=== PATIENT | female | born 1965 | race Caucasian/White ===

== ENCOUNTER 2020-09-14 11:36 | Inpatient (IN) | payer OTHER ==
[~2020-09-14] VITALS: Ht 165.1 cm; Wt 87.2 kg
[2020-09-14 12:55] LABS: BASOPHIL 0.9 % (0-2); EOSINOPHIL 0.3 % (0-5); HCT 21.4 % (37.0-47.0); LYMPHOCYTE 25.3 % (15-48); MCH 25.5 pg (25.0-31.0); MCHC 30.4 g/dL (32.0-36.0); MCV 83.9 fL (78.0-100.0); MPV 8.5 fL (6.0-9.5); NEUTROPHIL 67.4 % (41-80); NRBC 0.2; PLT 343 K/uL (150-400); RBC 2.55 M/uL (4.20-5.40); RDW 19.9 % (11.5-14.0); WBC 12.4 K/uL (4.0-10.5)
[2020-09-14 12:58] LABS: HGB 6.5 g/dl (12.5-16.0)
[2020-09-14 13:09] LABS: INR 1.28 (0.9-1.2); PROTHROMBIN TIME 15.2 SECONDS (11.4-13.6); PTT 33.3 SECONDS (22.2-34.7)
[2020-09-14 13:11] LABS: D-DIMER 0.42 ug/mLFEU (0.00-0.41)
[2020-09-14 13:25] LABS: ALBUMIN 2.6 g/dL (3.4-5.0); BILIRUBIN - TOTAL 1.6 mg/dL (0.2-1.0); CREATININE 0.61 mg/dL (0.51-0.95); GLOBULIN (CALCULATION) 4.3 g/dL; MAGNESIUM 1.1 mg/dL (1.8-2.4); POTASSIUM 2.5 mmol/L (3.5-5.1); TOTAL PROTEIN 6.9 g/dL (6.4-8.2)
[2020-09-14 17:16] LABS: BILIRUBIN 1+ mg/dL (NEGATIVE); BLOOD NEGATIVE Ery/uL (NEGATIVE); CLARITY HAZY (CLEAR); COLOR YELLOW (YELLOW); GLUCOSE (U) NORMAL (NORMAL); LEUKOCYTES 2+ Leu/uL (NEGATIVE); NITRITE POSITIVE (NEGATIVE); PROTEIN TRACE (LOW) mg/dL (NEGATIVE); UROBILINOGEN >=8.0 mg/dL (0.2-1.0); pH 6.5 (5.0-9.0)
[2020-09-14 17:43] LABS: BACTERIA 4+
[2020-09-15 06:31] LABS: EOSINOPHIL 0.8 % (0-5); HCT 30.9 % (37.0-47.0); LYMPHOCYTE 23.4 % (15-48); MCH 26.7 pg (25.0-31.0); MCHC 32.4 g/dL (32.0-36.0); MCV 82.4 fL (78.0-100.0); MONOCYTE 4.7 % (0-12); MPV 8.8 fL (6.0-9.5); NEUTROPHIL 69.2 % (41-80); NRBC 0.2; PLT 292 K/uL (150-400); RBC 3.75 M/uL (4.20-5.40); RDW 17.7 % (11.5-14.0); WBC 11.5 K/uL (4.0-10.5)
[2020-09-15 07:05] LABS: CREATININE 0.6 mg/dL (0.51-0.95); POTASSIUM 3.6 mmol/L (3.5-5.1)
[2020-09-15] MEDS ORDERED: BUSPAR5 MG PO (09:17)
[2020-09-15] MEDS ORDERED: PROZAC20 MG PO (09:18)
[2020-09-15] MEDS ORDERED: LOSARTAN POTASS50 MG PO (09:18)
[2020-09-15] MEDS ORDERED: SYMBICORT 80-10.2 GM INH (09:19)
[2020-09-15] MEDS ORDERED: ANORO ELLIPTA1 EACH INH (09:21)
[2020-09-16 05:50] LABS: HGB 9.3 g/dl (12.5-16.0); MCH 26.6 pg (25.0-31.0); MPV 8.8 fL (6.0-9.5); RBC 3.49 M/uL (4.20-5.40)
[2020-09-16 06:06] LABS: CREATININE 0.6 mg/dL (0.51-0.95); POTASSIUM 3.4 mmol/L (3.5-5.1)
--- NOTE | 2020-09-16 12:18 | NUR ---
09/16/20 Ms. Multani is . She lives with her sister and works at [employer]. She does not have any DME. A referral was made to [facility] in anticipation of discharge for 09/16 or 09/17. A report was given to Mariela [employer]CH[employer]ICIAN.
[2020-09-16] MEDS ORDERED: NEURONTIN300 MG PO (16:24)
[2020-09-16] MEDS ORDERED: ZOFRAN4 M1 PO (16:24)
[2020-09-16] MEDS ORDERED: PROTONIX 40MG T40 MG PO (16:24)
[2020-09-16] MEDS ORDERED: CARAFATE1 GM PO (16:35)
[2020-09-25] MEDS ORDERED: NEURONTIN300 MG PO (15:39)
== END 2020-09-16 17:00 | disposition home or self-care (01) | DRG 378 ==
LOC: FER 11:36 → FICU 14:23
PROVIDERS: Emergency Medicine; Hospitalist; Student in an Organized Health Care Education/Training Program; ADMIT Allergy & Immunology Allergy
PROC: 30233N1 Transfusion of Nonautologous Red Blood Cells into Peripheral Vein, Percutaneous Approach (ICD-10-PCS; 2020-09-14)
PROC: 0DB68ZX Excision of Stomach, Via Natural or Artificial Opening Endoscopic, Diagnostic (ICD-10-PCS; 2020-09-15)
PROC: 0DBP8ZZ Excision of Rectum, Via Natural or Artificial Opening Endoscopic (ICD-10-PCS; 2020-09-15)
PROC: 0DBE8ZZ Excision of Large Intestine, Via Natural or Artificial Opening Endoscopic (ICD-10-PCS; 2020-09-15)
PROC: 30233N1 Transfusion of Nonautologous Red Blood Cells into Peripheral Vein, Percutaneous Approach (ICD-10-PCS; 2020-09-15)
PROC: 0W3P8ZZ Control Bleeding in Gastrointestinal Tract, Via Natural or Artificial Opening Endoscopic (ICD-10-PCS; principal; 2020-09-15 14:15)
PROC: 3E0G8GC Introduction of Other Therapeutic Substance into Upper GI, Via Natural or Artificial Opening Endoscopic (ICD-10-PCS; 2020-09-15 14:15)
PROC: 0DB58ZX Excision of Esophagus, Via Natural or Artificial Opening Endoscopic, Diagnostic (ICD-10-PCS; 2020-09-15 14:15)
DX: K26.4 Chronic or unspecified duodenal ulcer with hemorrhage (principal); K22.10 Ulcer of esophagus without bleeding; K63.5 Polyp of colon; K64.4 Residual hemorrhoidal skin tags; D50.0 Iron deficiency anemia secondary to blood loss (chronic); I10 Essential (primary) hypertension; J44.9 Chronic obstructive pulmonary disease, unspecified; F41.9 Anxiety disorder, unspecified; F32.9 Major depressive disorder, single episode, unspecified; E78.5 Hyperlipidemia, unspecified; E04.1 Nontoxic single thyroid nodule; F17.200 Nicotine dependence, unspecified, uncomplicated; Z20.822 Contact with and (suspected) exposure to COVID-19; E87.6 Hypokalemia; E11.40 Type 2 diabetes mellitus with diabetic neuropathy, unspecified; I95.9 Hypotension, unspecified; E83.42 Hypomagnesemia; K76.0 Fatty (change of) liver, not elsewhere classified; Z79.82 Long term (current) use of aspirin; Z79.899 Other long term (current) drug therapy
CPT/HCPCS: 36415; 36430; 36600; 71045; 80048; 80053; 81001; 82270; 82803; 82962; 83036; 83605; 83690; 83735; 83880; 84443; 84484; 85025; 85379; 85610; 85730; 86850; 86900; 86901; 86922; 88305; 93005; 94640; C9113; J0171; J1170; J2250; J2405; J2704; J3475; J3480; J7050; J7120; P9016; U0002

== ENCOUNTER 2020-11-05 18:10 | Day surgery (SDCO) | payer OTHER ==
[~2020-11-05] VITALS: Ht 165.1 cm; Wt 74.9 kg
[~2020-11-05 18:10] MED LIST: ANORO ELLIPTA1 EACH INH; BUSPAR5 MG PO; CARAFATE1 GM PO; LOSARTAN POTASS50 MG PO; NEURONTIN300 MG PO; PROTONIX 40MG T40 MG PO; PROZAC20 MG PO; SYMBICORT 80-10.2 GM INH; ZOFRAN4 M1 PO
[2020-11-05 19:43] LABS: EOSINOPHIL 0.8 % (0-5); HCT 27.7 % (37.0-47.0); HGB 9.1 g/dl (12.5-16.0); LYMPHOCYTE 24.6 % (15-48); MCH 27.2 pg (25.0-31.0); MCHC 32.9 g/dL (32.0-36.0); MCV 82.7 fL (78.0-100.0); MONOCYTE 5.7 % (0-12); MPV 8.9 fL (6.0-9.5); NEUTROPHIL 67.4 % (41-80); NRBC 0; PLT 341 K/uL (150-400); RBC 3.35 M/uL (4.20-5.40); RDW 16.4 % (11.5-14.0)
[2020-11-05 19:54] LABS: ALBUMIN 2.9 g/dL (3.4-5.0); BUN/CREAT RATIO (CALC) 13.3 RATIO; CREATININE 0.6 mg/dL (0.51-0.95); GLOBULIN (CALCULATION) 4.8 g/dL; POTASSIUM 2.5 mmol/L (3.5-5.1); TOTAL PROTEIN 7.7 g/dL (6.4-8.2)
[2020-11-05 21:06] LABS: BILIRUBIN 2+ mg/dL (NEGATIVE); BLOOD NEGATIVE Ery/uL (NEGATIVE); CLARITY HAZY (CLEAR); COLOR ORANGE (YELLOW); GLUCOSE (U) NORMAL (NORMAL); LEUKOCYTES TRACE Leu/uL (NEGATIVE); NITRITE POSITIVE (NEGATIVE); PROTEIN 1+ mg/dL (NEGATIVE); UROBILINOGEN >=8.0 mg/dL (0.2-1.0); pH 6.5 (5.0-9.0)
[2020-11-05 21:11] LABS: BACTERIA 1+; SQUAMOUS EPITHELIAL CELLS 20-50; URINARY WBC RARE
[2020-11-05 23:22] LABS: MAGNESIUM 1.3 mg/dL (1.8-2.4)
[2020-11-06] MEDS ORDERED: AMOXICILLIN500 M1 PO (01:06)
[2020-11-06] MEDS ORDERED: ASPIRIN EC81 MG PO (01:08)
[2020-11-06] MEDS ORDERED: VITAMIN D310 MC3 PO (01:08)
[2020-11-06 05:36] LABS: BILIRUBIN NEGATIVE (NEGATIVE); BLOOD NEGATIVE Ery/uL (NEGATIVE); CLARITY CLEAR (CLEAR); COLOR YELLOW (YELLOW); GLUCOSE (U) NORMAL (NORMAL); LEUKOCYTES NEGATIVE Leu/uL (NEGATIVE); NITRITE NEGATIVE (NEGATIVE); PROTEIN NEGATIVE (NEGATIVE); SPECIFIC GRAVITY 1.015 (1.001-1.030); pH 7.5 (5.0-9.0)
[2020-11-06 06:18] LABS: BASOPHIL 1.1 % (0-2); HCT 24.5 % (37.0-47.0); HGB 8.1 g/dl (12.5-16.0); LYMPHOCYTE 31.8 % (15-48); MCH 27.4 pg (25.0-31.0); MCHC 33.1 g/dL (32.0-36.0); MCV 82.8 fL (78.0-100.0); MONOCYTE 5.4 % (0-12); MPV 8.7 fL (6.0-9.5); NEUTROPHIL 60.1 % (41-80); NRBC 0; PLT 284 K/uL (150-400); RBC 2.96 M/uL (4.20-5.40); RDW 16.1 % (11.5-14.0); WBC 10.1 K/uL (4.0-10.5)
[2020-11-06 06:59] LABS: ALBUMIN 2.4 g/dL (3.4-5.0); BILIRUBIN - TOTAL 0.8 mg/dL (0.2-1.0); BUN/CREAT RATIO (CALC) 13.5 RATIO; CREATININE 0.52 mg/dL (0.51-0.95); GLOBULIN (CALCULATION) 3.9 g/dL; POTASSIUM 2.8 mmol/L (3.5-5.1); TOTAL PROTEIN 6.3 g/dL (6.4-8.2)
[2020-11-06 07:14] LABS: MAGNESIUM 2.2 mg/dL (1.8-2.4)
[2020-11-06 17:19] LABS: HCT 26.7 % (37.0-47.0); HGB 8.6 g/dl (12.5-16.0); MCH 27.6 pg (25.0-31.0); MCHC 32.2 g/dL (32.0-36.0); MCV 85.6 fL (78.0-100.0); MPV 8.8 fL (6.0-9.5); RBC 3.12 M/uL (4.20-5.40); RDW 16.4 % (11.5-14.0); RETICULOCYTE COUNT 0.4 % (1.0-2.0); WBC 10.2 K/uL (4.0-10.5)
[2020-11-06 17:40] LABS: IRON % SATURATION 55.5 %SAT (20-50)
[2020-11-06 18:01] LABS: BUN/CREAT RATIO (CALC) 13.8 RATIO; CREATININE 0.58 mg/dL (0.51-0.95); FOLIC ACID (SERUM) 1.9 ng/mL (8.6-58.9); POTASSIUM 3.3 mmol/L (3.5-5.1)
[2020-11-07 05:47] LABS: BASOPHIL 1.1 % (0-2); EOSINOPHIL 1.6 % (0-5); HGB 7.6 g/dl (12.5-16.0); LYMPHOCYTE 43.7 % (15-48); MCH 27.2 pg (25.0-31.0); MCHC 31.7 g/dL (32.0-36.0); MONOCYTE 5.7 % (0-12); MPV 8.7 fL (6.0-9.5); NEUTROPHIL 47.3 % (41-80); NRBC 0; PLT 263 K/uL (150-400); RBC 2.79 M/uL (4.20-5.40); RDW 16.5 % (11.5-14.0); WBC 7.9 K/uL (4.0-10.5)
[2020-11-07 06:15] LABS: ALBUMIN 2.2 g/dL (3.4-5.0); BILIRUBIN - TOTAL 0.4 mg/dL (0.2-1.0); BUN/CREAT RATIO (CALC) 6.9 RATIO; CREATININE 0.58 mg/dL (0.51-0.95); GLOBULIN (CALCULATION) 3.7 g/dL; MAGNESIUM 1.4 mg/dL (1.8-2.4); TOTAL PROTEIN 5.9 g/dL (6.4-8.2)
[2020-11-07 06:49] LABS: LYMPHOCYTE(M) 48 % (15-48); MONOCYTE(M) 5 % (0-12); NEUTROPHILS(M) 47 % (41-80); TOTAL CELL COUNT 100
[2020-11-07 06:50] LABS: ANISOCYTOSIS SLIGHT; PLATELET ESTIMATE NORMAL; PLATELET MORPHOLOGY NORMAL; POIKILOCYTOSIS SLIGHT
--- NOTE | 2020-11-07 15:51 | NUR ---
11/07 Ms. Multani is staying in transtional housing through [employer]. (see social work notes)
[2020-11-08 05:45] LABS: BASOPHIL 0.2 % (0-2); EOSINOPHIL 0 % (0-5); HCT 24.6 % (37.0-47.0); HGB 7.8 g/dl (12.5-16.0); LYMPHOCYTE 10.8 % (15-48); MCH 26.9 pg (25.0-31.0); MCHC 31.7 g/dL (32.0-36.0); MCV 84.8 fL (78.0-100.0); MONOCYTE 0.6 % (0-12); MPV 8.9 fL (6.0-9.5); NEUTROPHIL 87.1 % (41-80); NRBC 0; PLT 305 K/uL (150-400); RDW 16.2 % (11.5-14.0); WBC 8.2 K/uL (4.0-10.5)
[2020-11-08 06:04] LABS: BUN/CREAT RATIO (CALC) 9.4 RATIO; CREATININE 0.53 mg/dL (0.51-0.95); MAGNESIUM 1.6 mg/dL (1.8-2.4)
[2020-11-08 11:21] LABS: BUN/CREAT RATIO (CALC) 10.6 RATIO; CREATININE 0.47 mg/dL (0.51-0.95); POTASSIUM 4.7 mmol/L (3.5-5.1)
[2020-11-08 11:22] LABS: MAGNESIUM 2.9 mg/dL (1.8-2.4)
[2020-11-08] MEDS ORDERED: BACLOFEN 10MG T10 MG PO (13:44)
[2020-11-08] MEDS ORDERED: FOLIC ACID1 MG PO (13:44)
[2020-11-08] MEDS ORDERED: NEURONTIN300 MG PO (13:44)
== END 2020-11-08 15:03 | disposition home or self-care (01) ==
LOC: FER 18:10 → FMS 23:50
PROVIDERS: Emergency Medicine; Internal Medicine; Nurse Practitioner; ADMIT Allergy & Immunology Allergy
DX: E87.6 Hypokalemia (principal); E83.42 Hypomagnesemia; R19.7 Diarrhea, unspecified; M51.36 Other intervertebral disc degeneration, lumbar region; D52.9 Folate deficiency anemia, unspecified; G89.29 Other chronic pain; I10 Essential (primary) hypertension; K21.9 Gastro-esophageal reflux disease without esophagitis; J44.9 Chronic obstructive pulmonary disease, unspecified; E11.40 Type 2 diabetes mellitus with diabetic neuropathy, unspecified; F17.210 Nicotine dependence, cigarettes, uncomplicated; E11.10 Type 2 diabetes mellitus with ketoacidosis without coma; E44.0 Moderate protein-calorie malnutrition; Z68.27 Body mass index [BMI] 27.0-27.9, adult; Z79.82 Long term (current) use of aspirin; Z79.899 Other long term (current) drug therapy; Z59.0 Homelessness; Z20.822 Contact with and (suspected) exposure to COVID-19
CPT/HCPCS: 36415; 80048; 80053; 81001; 81003; 82607; 82746; 83540; 83550; 83605; 83735; 84100; 85025; 87045; 87046; 87205; 87449; 94010; 97161; 97165; 97530; 97530-GP; G0378; J2405; J2930; J3475; J3480; J7030; J7120; Q9967; U0002

== ENCOUNTER 2021-02-23 16:17 | Emergency (ER) | payer OTHER ==
[~2021-02-23 16:17] MED LIST changes: +AMOXICILLIN500 M1 PO; +ASPIRIN EC81 MG PO; +BACLOFEN 10MG T10 MG PO; +FOLIC ACID1 MG PO; +VITAMIN D310 MC3 PO
[2021-02-23 17:39] LABS: BASOPHIL 1.3 % (0-2); EOSINOPHIL 1.2 % (0-5); HCT 42.1 % (37.0-47.0); HGB 13.7 g/dl (12.5-16.0); LYMPHOCYTE 28.5 % (15-48); MCH 29.1 pg (25.0-31.0); MCHC 32.5 g/dL (32.0-36.0); MCV 89.4 fL (78.0-100.0); MONOCYTE 6.6 % (0-12); MPV 9.7 fL (6.0-9.5); NEUTROPHIL 61.7 % (41-80); NRBC 0; PLT 227 K/uL (150-400); RBC 4.71 M/uL (4.20-5.40); RDW 14.5 % (11.5-14.0); WBC 11.9 K/uL (4.0-10.5)
[2021-02-23 17:41] LABS: INR 1.14 (0.9-1.2); PTT 28.3 SECONDS (24.4-34.7)
[2021-02-23 17:57] LABS: CREATININE 0.63 mg/dL (0.51-0.95); POTASSIUM 2.8 mmol/L (3.5-5.1)
[2021-02-23 18:03] LABS: ALBUMIN 2.8 g/dL (3.4-5.0); BILIRUBIN - TOTAL 1.2 mg/dL (0.2-1.0); GLOBULIN (CALCULATION) 4.3 g/dL; TOTAL PROTEIN 7.1 g/dL (6.4-8.2)
== END 2021-02-23 17:43 | disposition left against medical advice (07) ==
LOC: FER 16:17
PROVIDERS: Emergency Medicine
DX: R07.9 Chest pain, unspecified (principal); I10 Essential (primary) hypertension; F17.210 Nicotine dependence, cigarettes, uncomplicated; W19.XXXA Unspecified fall, initial encounter
CPT/HCPCS: 36415; 71046; 73630; 80053; 84484; 85025; 85610; 85730; 93005

== ENCOUNTER 2021-04-16 03:36 | Emergency (ER) | payer OTHER ==
[2021-04-16 04:49] LABS: BASOPHIL 1.7 % (0-2); EOSINOPHIL 2.3 % (0-5); HGB 13.4 g/dl (12.5-16.0); LYMPHOCYTE 35.3 % (15-48); MCH 31.2 pg (25.0-31.0); MCHC 31.9 g/dL (32.0-36.0); MCV 97.7 fL (78.0-100.0); MONOCYTE 8.3 % (0-12); MPV 8.8 fL (6.0-9.5); NEUTROPHIL 51.9 % (41-80); NRBC 0; PLT 210 K/uL (150-400); RDW 15.9 % (11.5-14.0); WBC 10.2 K/uL (4.0-10.5)
[2021-04-16 05:07] LABS: ALBUMIN 2.8 g/dL (3.4-5.0); BILIRUBIN - TOTAL 0.9 mg/dL (0.2-1.0); BUN/CREAT RATIO (CALC) 13.2 RATIO; C-REACTIVE PROTEIN 2.6 mg/dL (<=0.90); CREATININE 0.68 mg/dL (0.51-0.95); GLOBULIN (CALCULATION) 5.4 g/dL; POTASSIUM 3.2 mmol/L (3.5-5.1); TOTAL PROTEIN 8.2 g/dL (6.4-8.2)
[2021-04-16] MEDS ORDERED: PERCOCET 5-3251 EACH PO (06:45)
[2021-04-16] MEDS ORDERED: CEPHALEXIN500 M1 PO (06:45)
== END 2021-04-16 07:03 | disposition home or self-care (01) ==
LOC: FER 03:36
PROVIDERS: Emergency Medicine Emergency Medical Services
DX: M79.672 Pain in left foot (principal); I10 Essential (primary) hypertension; J44.9 Chronic obstructive pulmonary disease, unspecified; F17.210 Nicotine dependence, cigarettes, uncomplicated
CPT/HCPCS: 36415; 73700; 80053; 84550; 85025; 86140; J1100; J1885

== ENCOUNTER 2022-01-25 00:23 | Emergency (ER) | payer OTHER ==
[~2022-01-25 00:23] MED LIST changes: +ALDACTONE25 MG PO; +CEPHALEXIN500 M1 PO; +CERTAVITE-ANTI1 EACH PO; +FLORANEX TABLE1 EACH PO; +LASIX20 MG PO; +MAG-OXIDE 400M400 MG PO; +NORCO 5-325 TA1 EACH PO; +PERCOCET 5-3251 EACH PO; +PROAMATINE5 MG PO; +VITAMIN B-1100 M1 PO
[2022-01-25 00:48] LABS: EOSINOPHIL 1.6 % (0-5); HCT 46.7 % (37.0-47.0); HGB 15.4 g/dl (12.5-16.0); LYMPHOCYTE 47.2 % (15-48); MCH 31.1 pg (25.0-31.0); MCV 94.3 fL (78.0-100.0); MONOCYTE 8.7 % (0-12); NEUTROPHIL 40.2 % (41-80); NRBC 0; PLT 109 K/uL (150-400); RBC 4.95 M/uL (4.20-5.40); RDW 16.1 % (11.5-14.0); WBC 10.5 K/uL (4.0-10.5)
[2022-01-25 01:19] LABS: ALBUMIN 3.5 g/dL (3.4-5.0); BILIRUBIN - TOTAL 2.5 mg/dL (0.2-1.0); BUN/CREAT RATIO (CALC) 17.9 RATIO; CREATININE 0.56 mg/dL (0.51-0.95); GLOBULIN (CALCULATION) 5.4 g/dL; POTASSIUM 3.4 mmol/L (3.5-5.1); TOTAL PROTEIN 8.9 g/dL (6.4-8.2)
== END 2022-01-25 02:05 | disposition home or self-care (01) ==
LOC: FER 00:23
PROVIDERS: Emergency Medicine
DX: R07.89 Other chest pain (principal); M54.42 Lumbago with sciatica, left side; F10.99 Alcohol use, unspecified with unspecified alcohol-induced disorder; J44.9 Chronic obstructive pulmonary disease, unspecified; F17.200 Nicotine dependence, unspecified, uncomplicated; Z88.5 Allergy status to narcotic agent
CPT/HCPCS: 36415; 71045; 80053; 84484; 85025; 93005; J1885; J2405